=== PATIENT | male | born 1950 | race Caucasian/White ===

== ENCOUNTER → 2017-11-25 | Outpatient (CLI) | payer OTHER ==
[~2017-11-25] MED LIST: ASPI81CH; ATOR40TA; BENA20; FINA5; FURO40; LEVSOD150; METO50; POTA10T; SILD50TA; WARF5
[2017-11-25 12:03] LABS: BASOPHILS ABSOLUTE AUTO 0.04 K/mm3 (0.00-0.23); BASOPHILS PERCENT AUTO 0 % (0-2); EOSINOPHILS ABSOLUTE AUTO 0.07 K/mm3 (0.00-0.68); EOSINOPHILS PERCENT AUTO 1 % (0-6); Hematocrit 43.7 % (37.0-53.0); Hemoglobin 14.7 g/dL (13.5-17.5); IMMATURE GRAN ABSOLUTE AUTO 0.04 K/mm3 (0.00-0.10); IMMATURE GRAN PERCENT AUTO 0 % (0-1); LYMPHOCYTES ABSOLUTE AUTO 1.21 K/mm3 (0.84-5.20); LYMPHOCYTES PERCENT AUTO 13 % (21-46); MONOCYTES ABSOLUTE AUTO 0.97 K/mm3 (0.16-1.47); MONOCYTES PERCENT AUTO 10 % (4-13); Mean Corpuscular HGB 29.8 pg (26.0-34.0); Mean Corpuscular HGB Conc 33.6 g/dL (31.5-36.5); Mean Corpuscular Volume 89 fL (80-100); Mean Platelet Volume 9.6 fL (9.1-12.4); NEUTROPHILS ABSOLUTE AUTO 7.13 K/mm3 (1.96-9.15); NEUTROPHILS PERCENT AUTO 75 % (41-73); Platelet Count 210 K/mm3 (150-400); RDW Coefficient Variation 13.2 % (11.7-14.2); RDW Standard Deviation 42.9 fL (35.1-46.3); Red Blood Cell Count 4.93 M/mm3 (4.30-5.90); White Blood Cell Count 9.46 K/mm3 (4.00-11.30)
[2017-11-25 12:08] LABS: Anion Gap 9 mmol/L (6-16); Blood Urea Nitrogen 24 mg/dL (8-24); Bun/Creatinine Ratio 20.3 (12.0-20.0); CO2, Blood 28 mmol/L (21-32); Calcium, Blood 9.5 mg/dL (8.5-10.1); Chloride, Blood 99 mmol/L (98-108); Creatinine, Blood 1.18 mg/dL (0.60-1.20); Glomerular Filtration Rate >60 (60-); Glucose, Blood 102 mg/dL (70-99); Sodium, Blood 136 mmol/L (136-145); Uric Acid, Blood 11.5 mg/dL (3.5-7.2)
== END | disposition home or self-care (01) ==
LOC: LAB EV 11:55
PROVIDERS: Family Medicine
DX: M10.9 Gout, unspecified (principal); I48.91 Unspecified atrial fibrillation
CPT/HCPCS: 80048; 84550; 85025

== ENCOUNTER → 2018-12-30 | Outpatient (CLI) | payer OTHER | END | disposition home or self-care (01) | LOC: PLD 15:05 → LAB SHORT 15:05 | DX: D48.5 Neoplasm of uncertain behavior of skin (principal) | CPT/HCPCS: 88305 ==

== ENCOUNTER 2020-09-02 17:29 | Inpatient (IN) | payer OTHER ==
[~2020-09-02] VITALS: Ht 180.3 cm; Wt 133.1 kg
[~2020-09-02 17:29] MED LIST changes: -FINA5; +FINA5 PO; -POTA10T; +POTA10T PO
[2020-09-02 18:02] LABS: BASOPHILS ABSOLUTE AUTO 0.07 K/mm3 (0.00-0.23); BASOPHILS PERCENT AUTO 1 % (0-2); EOSINOPHILS ABSOLUTE AUTO 0.17 K/mm3 (0.00-0.68); EOSINOPHILS PERCENT AUTO 2 % (0-6); Hematocrit 53.1 % (37.0-53.0); IMMATURE GRAN ABSOLUTE AUTO 0.05 K/mm3 (0.00-0.10); IMMATURE GRAN PERCENT AUTO 1 % (0-1); LYMPHOCYTES ABSOLUTE AUTO 2.48 K/mm3 (0.84-5.20); LYMPHOCYTES PERCENT AUTO 25 % (21-46); MONOCYTES ABSOLUTE AUTO 0.89 K/mm3 (0.16-1.47); MONOCYTES PERCENT AUTO 9 % (4-13); Mean Corpuscular HGB 30.9 pg (26.0-34.0); Mean Corpuscular HGB Conc 35.8 g/dL (31.5-36.5); Mean Corpuscular Volume 87 fL (80-100); Mean Platelet Volume 10.1 fL (9.1-12.4); NEUTROPHILS ABSOLUTE AUTO 6.23 K/mm3 (1.96-9.15); NEUTROPHILS PERCENT AUTO 63 % (41-73); Platelet Count 242 K/mm3 (150-400); RDW Coefficient Variation 13.2 % (11.7-14.2); RDW Standard Deviation 41.4 fL (35.1-46.3); Red Blood Cell Count 6.14 M/mm3 (4.30-5.90); White Blood Cell Count 9.89 K/mm3 (4.00-11.30)
[2020-09-02 18:07] LABS: Base Excess Venous 13.5 mmol/L; Bicarbonate Venous 35.3 mmol/L (24.0-30.0); PCO2 Venous 45.1 mmHg (38-42); PO2 Venous 140 mmHg (38-42); pH Blood Venous 7.52 (7.34-7.37)
[2020-09-02 18:27] LABS: Troponin I <0.015 ng/mL (0.000-0.040)
[2020-09-02 18:31] LABS: Source, Urine Clean Catch
[2020-09-02 18:32] LABS: Thyroid Stimulating Hormone 9.52 uIU/mL (0.360-4.800)
[2020-09-02 18:35] LABS: Bilirubin, Urine Neg (Neg); Blood, Urine Neg (Neg); Glucose Qualitative, Urine 4+ (Neg); Ketones, Urine Neg (Neg); Leukocyte Esterase, Urine Neg (Neg); Nitrite, Urine Neg (Neg); Protein, Urine 1+ (Neg); Urobilinogen, Urine NORM (Normal)
[2020-09-02 18:40] LABS: Alanine Aminotransfer (ALT/SGP 64 U/L (12-78); Albumin, Blood 4.3 g/dL (3.4-5.0); Albumin/Globulin Ratio 1.1 (0.8-1.8); Alk Phos 149 U/L (50-136); Anion Gap 12 mmol/L (6-16); Aspartate Aminotrans (AST/SGOT 50 U/L (12-37); Bilirubin, Total 0.9 mg/dL (0.1-1.0); Blood Urea Nitrogen 65 mg/dL (8-24); Bun/Creatinine Ratio 45.5 (12.0-20.0); CO2, Blood 35 mmol/L (21-32); Calcium, Blood 10.6 mg/dL (8.5-10.1); Chloride, Blood 74 mmol/L (98-108); Creatinine, Blood 1.43 mg/dL (0.60-1.20); Glomerular Filtration Rate 52 (60-); Glucose, Blood 754 mg/dL (70-99); Potassium, Blood 3.1 mmol/L (3.5-5.5); Sodium, Blood 121 mmol/L (136-145); Total Protein, Blood 8.3 g/dL (6.4-8.2)
[2020-09-02 18:49] LABS: Appearance, Urine Clear (Clear); Color, Urine Yellow (P-Yellow)
[2020-09-02 19:35] LABS: Beta-hydroxybutyrate 2.2 mg/dL (0.2-2.8)
[2020-09-02] MEDS ORDERED: ALLO300 PO (20:54)
[2020-09-02] MEDS ORDERED: AMLO10 PO (20:54)
[2020-09-02] MEDS ORDERED: CHLO25B PO (20:55)
[2020-09-02] MEDS ORDERED: COLCRYS0.6 M1 PO (20:56)
[2020-09-02] MEDS ORDERED: Synthroid/Levo0.2 MG PO (20:59)
[2020-09-02] MEDS ORDERED: MAGNESIUM OXID500 MG (21:00)
[2020-09-02] MEDS ORDERED: ZEGERID 40 MG1 EAC1 PO (21:00)
[2020-09-02] MEDS ORDERED: Ropinirole HCl2 MG PO (21:01)
[2020-09-02] MEDS ORDERED: TORSE20 PO (21:01)
[2020-09-02] MEDS ORDERED: XARELTO20 MG PO (21:02)
[2020-09-02] MEDS ORDERED: TRAM50 PO (21:02)
[2020-09-02] MEDS ORDERED: OMEPRAZOLE20 MG PO (21:06)
[2020-09-02 21:14] LABS: International Normalized Ratio 1.24; Prothrombin Time Results 13.1 Sec (9.7-11.5)
[2020-09-02 22:25] LABS: Free Thyroxine 1.45 ng/dL (0.70-1.60)
[2020-09-02 23:29] LABS: Glucose, Blood 743 mg/dL (70-99)
[2020-09-02] MEDS ORDERED: METO100 PO (23:57)
[2020-09-02] MEDS ORDERED: FLONASE ALLERG9.9 ML (23:59)
[2020-09-02] MEDS ORDERED: Vitamin D2000 UNIT PO (23:59)
[2020-09-02] MEDS ORDERED: ALLEGRA ALLERG180 MG PO (23:59)
[2020-09-03 00:45] LABS: Glucose (ISTAT POC) >700 mg/dL (70-99)
--- NOTE | 2020-09-03 01:08 | NUR ---
PT SPO2 DECREASED TO 85% AT TIMES. ATTEMPTED TO PUT N/C ON PT AT 2 LPM, PT REFUSES TO WEAR O2. EDUCATED PT ON REASON FOR O2 N/C. PT CONTINUES TO REFUSE.
[2020-09-03 01:17] LABS: Bun/Creatinine Ratio 46.5 (12.0-20.0); Calcium, Blood 9.6 mg/dL (8.5-10.1); Creatinine, Blood 1.42 mg/dL (0.60-1.20)
[2020-09-03 02:00] LABS: Glucose (ISTAT POC) 632 mg/dL (70-99)
[2020-09-03 03:15] LABS: Glucose (ISTAT POC) 543 mg/dL (70-99)
[2020-09-03 03:28] LABS: BASOPHILS ABSOLUTE AUTO 0.09 K/mm3 (0.00-0.23); BASOPHILS PERCENT AUTO 1 % (0-2); EOSINOPHILS ABSOLUTE AUTO 0.16 K/mm3 (0.00-0.68); EOSINOPHILS PERCENT AUTO 2 % (0-6); Hematocrit 49.7 % (37.0-53.0); Hemoglobin 18.2 g/dL (13.5-17.5); IMMATURE GRAN ABSOLUTE AUTO 0.04 K/mm3 (0.00-0.10); IMMATURE GRAN PERCENT AUTO 0 % (0-1); LYMPHOCYTES ABSOLUTE AUTO 2.96 K/mm3 (0.84-5.20); LYMPHOCYTES PERCENT AUTO 27 % (21-46); MONOCYTES ABSOLUTE AUTO 1.06 K/mm3 (0.16-1.47); MONOCYTES PERCENT AUTO 10 % (4-13); Mean Corpuscular HGB 31.2 pg (26.0-34.0); Mean Corpuscular HGB Conc 36.6 g/dL (31.5-36.5); Mean Corpuscular Volume 85 fL (80-100); Mean Platelet Volume 10.2 fL (9.1-12.4); NEUTROPHILS ABSOLUTE AUTO 6.48 K/mm3 (1.96-9.15); NEUTROPHILS PERCENT AUTO 60 % (41-73); Platelet Count 225 K/mm3 (150-400); RDW Coefficient Variation 13.2 % (11.7-14.2); RDW Standard Deviation 40.9 fL (35.1-46.3); Red Blood Cell Count 5.83 M/mm3 (4.30-5.90); White Blood Cell Count 10.79 K/mm3 (4.00-11.30)
[2020-09-03 03:45] LABS: Albumin, Blood 4.1 g/dL (3.4-5.0); Albumin/Globulin Ratio 1.1 (0.8-1.8); Bilirubin, Total 0.8 mg/dL (0.1-1.0); Bun/Creatinine Ratio 43.8 (12.0-20.0); Calcium, Blood 9.9 mg/dL (8.5-10.1); Creatinine, Blood 1.46 mg/dL (0.60-1.20); Globulin, Blood 3.9 g/dL (2.2-4.0)
--- NOTE | 2020-09-03 06:21 | NUR ---
SHIFT SUMMARY PT REMAINED AWAKE THROUGH THE NIGHT. ALERT AND ORIENTED. ABLE TO MAKE NEEDS KNOWN AND INDEPENDENT WITH REPOSITIONING AND MINIMAL ASSIST WITH BR. INSULIN INFUSING AT 4 UNITS/HR. POTASSIUM REPLACEMENT IN PROGRESS. PT STATES SOME NAUSEA THROUGH AND WAS GIVEN ZOFRAN WITH GOOD EFFECT. PT EAGER FOR BREAKFAST TRAY. EDUCATED PT ON DIABETES DEISEASE PROCESS WELL MEDICATIONS. PT. STATED UNDERSTANDING AND HAD SOME QUESTIONS. PT. ABLE TO AMBULATE AND STEADY ON FEET.
--- NOTE | 2020-09-03 11:15 | NUR ---
Patient gave verbal permission to monique brijesh to [facility] to provide care during hours of 06:45 to 13:30 on 09/02/2020.
--- NOTE | 2020-09-03 11:42 | NUR ---
EARLY SHIFT ASSESS... PT IS C/O NAUSEA, AND SOME DRY HEEVES NOTED. PT IS SOMEWHAT POOR HX AND MINIMAL GRASP OF HIS HEALTH AND DISEASE PROCESSES. PT IS ON INSULIN GTT AND TITRATIONS NOTED TO CONT TO PROGRESS AND MANNAGE GLUCOSE.
--- NOTE | 2020-09-03 11:47 | NUR ---
DR CARTER IN TO SEE AND ASSESS PT. IVF TO STOP PER VO. PT WANTED BREAKFAST BUT HE TOOK MINIMAL AMOUNT OF B.FAST AND WILL FOLLOW.
--- NOTE | 2020-09-03 14:56 | NUR ---
1420 CBG IS JUST NOW BEGNING TO COME DOWN. LALNTUS WAS GIVEN AT 1300 AND WILL FOLLOW FOR D/C-ING OF INSULLIN. PT SABILLON IMPROVED.
--- NOTE | 2020-09-03 15:12 | NUR ---
GUIDEMAN IN TO EDUCATE PT RE DIET FOR F/U. AND REMAINS ON INUSLIN .
--- NOTE | 2020-09-03 15:36 | NUR ---
INSULIN GTT STOPPED AND IV SL. CBG 223. WILL FOLLOW WITH SQ INSULIN SLIDING SCALE PER DR DOS SANTOS.
--- NOTE | 2020-09-03 16:29 | NUR ---
PT A/O AND FEELING LIKE EATING. DENIES PAIN AND OFF INSULIN FOR 1 HOUR WITH CBG AT 243. CALLED DR CARTER FOR REQUEST FOR TRANSFER TO [place] TELE ORDERS.
--- NOTE | 2020-09-03 17:49 | NUR ---
PT DENIES PAIN OR DISTRESS CURRENTLY. SETTING UP IN CHAIR FEEDING SELF. PT NOT FULLY GRASPING ALL THAT THE UTILITY TRACTOR OPERATOR SPOKE ABOUT WITH HER VISIT. WILL REPORT AND FOLLOW. I/O NOTED . PT REMAINS IN AFIB.
--- NOTE | 2020-09-03 20:00 | NUR ---
ASSUMED CARE: PT A&O. IN CHRONIC AFIB. LUNG SOUNDS CLEAR. SPO2 >90% ON RA. ADA DIET. VOIDS ON OWN INTO URINAL. 2 PIV-LAC AND RFA. PATENT AND SL. WILL CONTINUE TO MONITOR
--- NOTE | 2020-09-04 03:02 | NUR ---
PT SLEEPING MAJORITY OF NIGHT. VSS
--- NOTE | 2020-09-04 06:04 | NUR ---
SHIFT SUMMARY: NO ACUTE CHANGES T/O SHIFT. VSS. PT SLEPT MAJORITY OF SHIFT. SEVERAL EPISODES OF DESATS THAT ONLY LASTED A COUPLE SECONDS BEFORE PT RECOVERED. A COUPLE L NC WAS PLACED ON PT. HE TOOK THE NC OFF THIS AM. SATS >90%. INDEPENDENT IN ROOM. CONTINENT. WILL PASS REPORT TO ONCOMING SHIFT
--- NOTE | 2020-09-04 07:36 | NUR ---
ASSUMED CARE: PT RESTING IN BED, ALERT, ORIENTED, TALKING TO STAFF. SL. AFIB ON TELE WITH HR IN 90S. AMBULATORY AND ASKED FOR ASSISTANCE TO BSC. DENIES FURTHER NEEDS AT THIS TIME.
[2020-09-04 08:23] LABS: Anion Gap 8 mmol/L (6-16); Blood Urea Nitrogen 45 mg/dL (8-24); Bun/Creatinine Ratio 40.2 (12.0-20.0); CO2, Blood 34 mmol/L (21-32); Calcium, Blood 10.1 mg/dL (8.5-10.1); Chloride, Blood 91 mmol/L (98-108); Creatinine, Blood 1.12 mg/dL (0.60-1.20); Glomerular Filtration Rate >60 (60-); Glucose, Blood 324 mg/dL (70-99); Potassium, Blood 3.7 mmol/L (3.5-5.5); Sodium, Blood 133 mmol/L (136-145)
[2020-09-04] MEDS ORDERED: BASAGLAR K100 UNIT/1 SC (11:24)
[2020-09-04] MEDS ORDERED: ACET325 PO (11:24)
[2020-09-04] MEDS ORDERED: AMLO5 PO (11:25)
[2020-09-04] MEDS ORDERED: METF500 PO (11:25)
[2020-09-04] MEDS ORDERED: Prinivil10 MG PO (11:25)
--- NOTE | 2020-09-04 11:30 | NUR ---
PT'S STEPPED OUT OF ROOM AND STATED THAT SHE PICKED UP PT'S GLUCOMETER BUT WAS TOLD THAT DR WANTED BLOOD SUGARS CHECKED 4 TIMES A DAY BUT INSURANCE WOULD ONLY APPROVE 3 TIMES A DAY. CALL TO DR CARTER WHO STATED HE WANTED PT TO CHECK SUGAR 4 TIMES A DAY UNTIL FOLLOW UP WITH [facility] OFFICE, WHICH SHOULD BE IN 3 DAYS. STRIPS DID NOT COME WITH NEW GLUCOMETER SO REVIEWED USE OF GLUCOMETER WITH PT AND USING OUR GLUCOMETER. WENT OVER INSTRUCTIONS OF NEW GLUCOMETER WELL. EXPLAINED TO PT THAT IF HE HAS ANY CONFUSION ON USING MACHINE OR GETS ANY ERROR MESSAGES THAT HE NEEDS TO CALL DR'S OFFICE OR HOSPITAL FOR HELP AND TO NOT IGNORE THE MESSAGE BECAUSE BLOOD SUGARS CAN EASILY GET OUT OF CONTROL THAT WAY. EXPLAINED TO PT BASICS OF DIABETES AND HOW INSULIN WORKS. DIETITIAN HAD ALREADY DISCUSSED DIET WITH PT AND THIS NURSE REITERATED ON IT. PT TAUGHT BACK SOME OF WHAT HE LEARED ABOUT DIETARY CHOICES. PACKETS ON THIS ALSO PROVIDED IN DC TEACHING. PT SEEMED CONFUSED ABOUT MEDICATIONS AND NURSE HAD TO KEEP RE-INSTRUCTING ABOUT METFORMIN TO BE GIVEN TWICE A DAY WITH BREAKFAST AND DINNER AND LONG ACTING INSULIN TO BE GIVEN AT BEDTIME WITH A SNACK. INSTRUCTED PT TO NEVER MEDICATE BASED ON HOW HE FEELS AND TO ALWAYS CHECK SUGAR FIRST BEFORE TREATMENT WHEN HAVING SYMPTOMS. PT AND WERE THEN GIVEN A BREAK FROM TEACHING AND WERE TOLD THAT RN WOULD BE BACK AT A LATER TIME TO RECHECK BLOOD SUGAR. CBG WAS 413 AND WAS TREATED BUT LUNCH WAS WITHELD. DR CARTER STOPPED BACK BY TO SEE PT AGAIN AND WAS MADE AWARE OF 413 BLOOD SUGAR AND AGREED TO PLAN OF RECHECKING AFTER AN HOUR AND CAN LET HIM GO HOME IF LESS THAN 400.
--- NOTE | 2020-09-04 13:10 | NUR ---
ENTERED ROOM TO RECHECK BLOOD SUGAR WITH IMPROVED RESULT. LUNCH TRAY PROVIDED. PT MADE COMMENT TO IMPLY THAT HE DID NOT UNDERSTAND METFORMIN WAS TWICE A DAY AND LANTUS WAS TO BE GIVEN IN EVENING. RE-EXPLAINED THIS. PT EATING LUNCH AT THIS TIME.
--- NOTE | 2020-09-04 14:45 | NUR ---
PT AGAIN MADE AN INCORRECT COMMENT ABOUT MEDICATIONS AND WHEN THEY SHOULD BE ADMINISTERED. DISCUSSED THIS WITH PT AND AGAIN. DISCUSSED CONCERN WITH RESEARCH PHYSICIAN DUE TO PT NOT UNDERSTANDING DISCHARGE INSTRUCTIONS. RESEARCH PHYSICIAN RELAYED THAT SHE HEARD THAT PT HAD A DAUGHTER THAT OFFERED TO HELP EXPLAIN INSTRUCTIONS WITH PT AND HELP MANAGE PT AT HOME. CALL TO PT'S DAUGHTER AND EXPLAINED RN'S CONCERNS. PT AGREED THAT PT AND ARE PROBABLY NOT UNDERSTANDING INSTRUCTIONS WELL. GAVE DAUGHTER INFORMATION ABOUT DIABETES AND EXPLAINED HOW MEDICATIONS WORK AND WHEN PT SHOULD TAKE THEM WELL HOW OFTEN PT SHOULD CHECK CBGS AND RECORD THEM. DAUGHTER SAID SHE LIVES 5 HOURS AWAY AND WAS HOPING TO COME CHECK ON THEM IN A FEW DAYS. ASKED DAUGHTER IF IN THE MEANTIME SHE CALL AND CHECK ON HOW HE'S DOING ADMINISTERING MEDICATIONS AND HOW HIS CBGS ARE LOOKING. EXPLAINED TO DAUGHTER THAT IF SHE HEARS THEM DISCUSS ANY CONFUSION OR CONCERNS ABOUT MEDICATIONS OR EQUIPMENT THAT THEY HAVE BEEN TOLD TO CALL HOSPITAL OR DOCTOR'S OFFICE AND TO NOT IGNORE THAT. DAUGHTER SAID SHE WILL BE ABLE TO CALL AND CHECK AND HOPEFULLY COME VISIT THEM IN THE NEXT FEW DAYS. TOLD HER THAT OFFICE SHOULD BE CALLING TO SCHEDULE APPOINTMENT AND THAT SHE SHOULD TRY TO GO WITH HIM TO APPOINTMENT.
--- NOTE | 2020-09-04 15:17 | NUR ---
PT WAS DISCHARGED HOME AFTER GETTING DRESSED AND IV'S DC'D WNL. PT SHOWED RN THAT HE HAD WRITTEN SCHEDULE FOR MEDS AND DC INSTRUCTIONS. REITERATED THAT HE NEEDED TO CALL HOSPITAL OR [facility] WITH ANY QUESTIONS AND TO MAKE NO ASSUMPTIONS. CALLED SIMA WITH [facility] AND ASKED IF SHE COULD MAKE A NOTE IN CHART SO THAT OFFICE WOULD ALLOW DAUGHTER TO COME IN WITH PT FOR APPOINTMENT DUE TO PT NOT RETAINING INFORMATION WELL. SIMA MADE A NOTE OF THIS AND STATED SHE WOULD CALL DINKEY LOCOMOTIVE OPERATOR AT [facility] TO FOLLOW UP WITH PT SOONER RATHER THAN LATER DUE TO POOR INFORMATION RETENTION. PT AMBULATORY UPON DISCHARGE.
== END 2020-09-04 14:40 | disposition home or self-care (01) | DRG 638 ==
LOC: ER 17:29 → ICUW 17:30
PROVIDERS: Emergency Medicine; Family Medicine; Physician Assistant; ADMIT Internal Medicine
DX: E11.00 Type 2 diabetes mellitus with hyperosmolarity without nonketotic hyperglycemic-hyperosmolar coma (NKHHC) (principal); E87.1 Hypo-osmolality and hyponatremia; Z68.41 Body mass index [BMI] 40.0-44.9, adult; I48.92 Unspecified atrial flutter; E86.0 Dehydration; E87.6 Hypokalemia; I48.91 Unspecified atrial fibrillation; E66.01 Morbid (severe) obesity due to excess calories; G47.33 Obstructive sleep apnea (adult) (pediatric); G25.81 Restless legs syndrome; I10 Essential (primary) hypertension; E89.0 Postprocedural hypothyroidism; K21.9 Gastro-esophageal reflux disease without esophagitis; N40.0 Benign prostatic hyperplasia without lower urinary tract symptoms; E83.52 Hypercalcemia; M10.9 Gout, unspecified; J44.9 Chronic obstructive pulmonary disease, unspecified; K42.9 Umbilical hernia without obstruction or gangrene; Z79.01 Long term (current) use of anticoagulants; Z87.891 Personal history of nicotine dependence
CPT/HCPCS: 36415; 71046; 80048; 80053; 82010; 82803; 82947; 83036; 83930; 84439; 84443; 84484; 85025; 85610; 93005; 93010; 96374; 96375; 96376; 99285-25; A9270; A9270-GY; G0378; J1815; J2405; J3010; J3480; J7030; J7050

== ENCOUNTER → 2020-12-31 | Outpatient (CLI) | payer OTHER ==
[~2020-12-31] MED LIST changes: +ACET325 PO; +ALBU2.5V5 INH; +ALBU90OI INH; +ALLEGRA ALLERG180 MG PO; +ALLO300 PO; +AMLO10 PO; +AMLO5 PO; +AMLODIPINE BESYL5 MG PO; +BASAGLAR K100 UNIT/1 SC; +CHLO25B PO; +COLCHICINE0.6 MG PO; +COLCRYS0.6 M1 PO; +FARXIGA10 MG PO; +FLONASE ALLERG9.9 ML; +FLUT1DIS5 INH; +FLUTICASONE-SA1 EAC9 INH; +INSULIN LI100 UNIT/8 SC; +LOSARTAN POTASS25 M2 PO; +MAGNESIUM OXID400 M1 PO; +MAGNESIUM OXID500 MG; +METF500 PO; +METO100 PO; +METOPROLOL TAR PO; +OMEP20ER PO; +OMEPRAZOLE20 MG PO; +ONDA4 PO; +Potassium Chlo20 ME1 PO; +Prinivil10 MG PO; +ROPINIROLE HCL3 M3 PO; +Ropinirole HCl2 MG PO; +SILD50TA PO; +SPIRONOLACTONE25 MG PO; +Synthroid/Levo0.2 MG PO; +TAMSULOSIN HCL0.4 M1 PO; +TORSE20 PO; +TRAM50 PO; +Vitamin D2000 UNIT PO; +XARELTO20 M1 PO; +XARELTO20 MG PO; +ZEGERID 40 MG1 EAC1 PO
== END | disposition home or self-care (01) ==
LOC: LAB SHORT 07:43 → PLD 07:43
DX: D18.01 Hemangioma of skin and subcutaneous tissue (principal)
CPT/HCPCS: 88305

== ENCOUNTER → 2021-03-26 | Outpatient (CLI) | payer OTHER ==
[2021-03-26 14:07] LABS: BASOPHILS ABSOLUTE AUTO 0.08 K/mm3 (0.00-0.23); BASOPHILS PERCENT AUTO 1 % (0-2); EOSINOPHILS ABSOLUTE AUTO 0.18 K/mm3 (0.00-0.68); EOSINOPHILS PERCENT AUTO 2 % (0-6); Hematocrit 52.6 % (37.0-53.0); Hemoglobin 18.3 g/dL (13.5-17.5); IMMATURE GRAN ABSOLUTE AUTO 0.08 K/mm3 (0.00-0.10); IMMATURE GRAN PERCENT AUTO 1 % (0-1); LYMPHOCYTES ABSOLUTE AUTO 1.95 K/mm3 (0.84-5.20); LYMPHOCYTES PERCENT AUTO 17 % (21-46); MONOCYTES ABSOLUTE AUTO 0.89 K/mm3 (0.16-1.47); MONOCYTES PERCENT AUTO 8 % (4-13); Mean Corpuscular HGB 31.1 pg (26.0-34.0); Mean Corpuscular HGB Conc 34.8 g/dL (31.5-36.5); Mean Corpuscular Volume 89 fL (80-100); NEUTROPHILS ABSOLUTE AUTO 8.66 K/mm3 (1.96-9.15); NEUTROPHILS PERCENT AUTO 73 % (41-73); Platelet Count 271 K/mm3 (150-400); RDW Coefficient Variation 13.6 % (11.7-14.2); RDW Standard Deviation 44.9 fL (35.1-46.3); Red Blood Cell Count 5.89 M/mm3 (4.30-5.90); White Blood Cell Count 11.84 K/mm3 (4.00-11.30)
[2021-03-26 14:22] LABS: Albumin, Blood 4.6 g/dL (3.4-5.0); Albumin/Globulin Ratio 1.3 (0.8-1.8); Calcium, Blood 10.3 mg/dL (8.5-10.1); Creatinine, Blood 1.93 mg/dL (0.60-1.20); Globulin, Blood 3.5 g/dL (2.2-4.0); Potassium, Blood 5.6 mmol/L (3.5-5.5); Total Protein, Blood 8.1 g/dL (6.4-8.2)
== END | disposition home or self-care (01) ==
LOC: LAB SHORT 13:55 → LAB EV 13:55
PROVIDERS: Physician Assistant
DX: E86.0 Dehydration (principal)
CPT/HCPCS: 80053; 83690; 85025

== ENCOUNTER 2021-03-28 17:43 | Inpatient (IN) | payer OTHER, MEDICARE ==
[~2021-03-28] VITALS: Ht 180.3 cm; Wt 131.7 kg
[~2021-03-28 17:43] MED LIST changes: -ALBU2.5V5 INH; -ALBU90OI INH; -AMLODIPINE BESYL5 MG PO; -COLCHICINE0.6 MG PO; -FARXIGA10 MG PO; -FLUT1DIS5 INH; -FLUTICASONE-SA1 EAC9 INH; -INSULIN LI100 UNIT/8 SC; -LOSARTAN POTASS25 M2 PO; -MAGNESIUM OXID400 M1 PO; -METOPROLOL TAR PO; -OMEP20ER PO; -ONDA4 PO; -Potassium Chlo20 ME1 PO; -ROPINIROLE HCL3 M3 PO; -SILD50TA PO; -SPIRONOLACTONE25 MG PO; -TAMSULOSIN HCL0.4 M1 PO; -XARELTO20 M1 PO
[2021-03-28 18:15] LABS: Calcium, Ionized (POC) 1.13 mmol/L (1.10-1.46); Chloride (POC) 93 mmol/L (98-108); Glucose (ISTAT POC) >700 mg/dL (70-99); Hemoglobin (POC) 18.7 g/dL (13.5-17.5); Potassium (POC) 6.8 mmol/L (3.5-5.5); Sodium (POC) 124 mmol/L (135-148); Total CO2 (POC) 27 mmol/L (21-32)
[2021-03-28 18:16] LABS: BASOPHILS ABSOLUTE AUTO 0.05 K/mm3 (0.00-0.23); BASOPHILS PERCENT AUTO 0 % (0-2); EOSINOPHILS ABSOLUTE AUTO 0.02 K/mm3 (0.00-0.68); EOSINOPHILS PERCENT AUTO 0 % (0-6); Hemoglobin 17.2 g/dL (13.5-17.5); IMMATURE GRAN PERCENT AUTO 1 % (0-1); LYMPHOCYTES ABSOLUTE AUTO 0.99 K/mm3 (0.84-5.20); LYMPHOCYTES PERCENT AUTO 7 % (21-46); MONOCYTES ABSOLUTE AUTO 1.03 K/mm3 (0.16-1.47); MONOCYTES PERCENT AUTO 7 % (4-13); Mean Corpuscular HGB 31.3 pg (26.0-34.0); Mean Corpuscular HGB Conc 31.1 g/dL (31.5-36.5); Mean Corpuscular Volume 101 fL (80-100); Mean Platelet Volume 11.4 fL (9.1-12.4); NEUTROPHILS ABSOLUTE AUTO 11.69 K/mm3 (1.96-9.15); NEUTROPHILS PERCENT AUTO 84 % (41-73); Platelet Count 278 K/mm3 (150-400); RDW Coefficient Variation 13.6 % (11.7-14.2); RDW Standard Deviation 51.5 fL (35.1-46.3); White Blood Cell Count 13.88 K/mm3 (4.00-11.30)
[2021-03-28 18:21] LABS: Hematocrit 55.3 % (37.0-53.0)
[2021-03-28 18:27] LABS: Base Excess Venous -3.4 mmol/L; Bicarbonate Venous 21.5 mmol/L (24.0-30.0); PCO2 Venous 44.4 mmHg (38-42); PO2 Venous 114 mmHg (38-42); pH Blood Venous 7.32 (7.34-7.37)
[2021-03-28 18:34] LABS: Magnesium, Blood 3.2 mg/dL (1.6-2.4)
[2021-03-28 18:39] LABS: Albumin, Blood 4.1 g/dL (3.4-5.0); Albumin/Globulin Ratio 1.1 (0.8-1.8); Bilirubin, Total 0.9 mg/dL (0.1-1.0); Bun/Creatinine Ratio 39.5 (12.0-20.0); Calcium, Blood 9.4 mg/dL (8.5-10.1); Creatinine, Blood 2.63 mg/dL (0.60-1.20); Globulin, Blood 3.7 g/dL (2.2-4.0); Phosphorus, Blood 6.5 mg/dL (2.5-4.9); Potassium, Blood 6.6 mmol/L (3.5-5.5); Total Protein, Blood 7.8 g/dL (6.4-8.2)
[2021-03-28] MEDS ORDERED: TAMSULOSIN HCL0.4 M1 PO (19:00)
[2021-03-28] MEDS ORDERED: FLUTICASONE-SA1 EAC9 INH (19:01)
[2021-03-28] MEDS ORDERED: Potassium Chlo20 ME1 PO (19:02)
[2021-03-28] MEDS ORDERED: SPIRONOLACTONE25 MG PO (19:02)
[2021-03-28] MEDS ORDERED: LOSARTAN POTASS25 M2 PO (19:03)
[2021-03-28] MEDS ORDERED: FINA5 PO (19:03)
[2021-03-28] MEDS ORDERED: AMLODIPINE BESYL5 MG PO (19:03)
[2021-03-28] MEDS ORDERED: OMEP20ER PO (19:03)
[2021-03-28] MEDS ORDERED: ALLO300 PO (19:03)
[2021-03-28] MEDS ORDERED: XARELTO20 M1 PO (19:04)
[2021-03-28] MEDS ORDERED: ROPINIROLE HCL3 M3 PO (19:04)
[2021-03-28] MEDS ORDERED: METOPROLOL TAR PO (19:04)
[2021-03-28 19:39] LABS: Source, Urine Clean Catch
[2021-03-28 19:57] LABS: Bilirubin, Urine Neg (Neg); Blood, Urine Neg (Neg); Glucose Qualitative, Urine 4+ (Neg); Ketones, Urine Neg (Neg); Leukocyte Esterase, Urine Neg (Neg); Nitrite, Urine Neg (Neg); Protein, Urine Neg (Neg); Urobilinogen, Urine NORM (Normal)
[2021-03-28 20:07] LABS: Appearance, Urine Clear (Clear); Color, Urine Pale Yellow (P-Yellow)
[2021-03-28 20:51] LABS: Bun/Creatinine Ratio 39.1 (12.0-20.0); Calcium, Blood 9.2 mg/dL (8.5-10.1); Creatinine, Blood 2.61 mg/dL (0.60-1.20); Potassium, Blood 5.2 mmol/L (3.5-5.5)
[2021-03-28 22:38] LABS: Glucose, Blood 1095 mg/dL (70-99)
--- NOTE | 2021-03-28 23:12 | NUR ---
ASSUMED PT CARE AT 2104 PT ARRIVED FROM ED ALERT AND ORIENTED AND ABLE TO COMMUNICATE NEEDS. PT HAS A "3RD GRADE READING LEVEL"; HOWEVER, DOES NOT READ OR WRITE. STATES HE HAS HIS "DO ALL THAT". PT ARRIVED WITH NS INFUSING WO. INSULIN GTT YET TO BE STARTED, WHICH WAS INITIATED AT A RATE OF 3 UNITS/HR D/T BS 1158. TRENDING IN THE RIGHT DIRECTION WITH MOST RECENT BS 1095. PT APPEARS VERY FORGETFUL AND REQUIRES EXTENSIVE EDUCATION REGARDING HIS DISEASE PROCESS. PT REQUESTING MILK SHAKES AND CHIPS. EDUCATION GIVEN REGARDING REASON FOR HOSPITAL STAY IN REGARDS TO ELEVATED BLOOD SUGAR AND REQUIRING MEDICATIONS TO LOWER BLOOD SUGAR LEVEL. PT STATES HE TAKES METFORMIN; THEREFORE, NEEDS CARBS. REITERATED TO PT THAT HE NEEDS METFORMIN BECAUSE HE EATS TOO MANY CARBS/SUGARS IN HIS DIET. PT DOES NOT APPEAR TO COMPREHEND, NOR IS RECEPTIVE TO ANY EDUCATION. PT STATES HIS HELPS TAKE CARE OF HIM; THEREFORE, EDUCATION MAY BE MORE BENEFICIAL TO BE HAD WITH . PT NOTED TO BE IN AFIB WITH A RATE OF 90-110'S; BP'S STABLE; HOWEVER, SBP LOW 100'S. NS INFUSING AT A RATE OF 100MLS/HR X1.[address] GOODWIN. CALL LIGHT WITHIN REACH; HOWEVER, BED ALARM SET D/T PT FORGETFUL AND IMPULSIVE. UTILIZES URINAL, BUT HAS TO STAND AT BEDSIDE FOR USE. WILL CONTINUE TO MONITOR.
[2021-03-28 23:43] LABS: Glucose, Blood 904 mg/dL (70-99)
[2021-03-29 01:09] LABS: Glucose, Blood 870 mg/dL (70-99)
[2021-03-29] MEDS ORDERED: FLUT1DIS5 INH (01:39)
[2021-03-29] MEDS ORDERED: ALBU2.5V5 INH (01:39)
[2021-03-29] MEDS ORDERED: CHLO25B PO (01:40)
[2021-03-29] MEDS ORDERED: ALBU90OI INH (01:40)
[2021-03-29] MEDS ORDERED: COLCHICINE0.6 MG PO (01:41)
[2021-03-29] MEDS ORDERED: FARXIGA10 MG PO (01:43)
[2021-03-29] MEDS ORDERED: MAGNESIUM OXID400 M1 PO (01:44)
[2021-03-29] MEDS ORDERED: SILD50TA PO (01:45)
[2021-03-29] MEDS ORDERED: ONDA4 PO (01:45)
[2021-03-29] MEDS ORDERED: ACET325 PO (01:48)
[2021-03-29] MEDS ORDERED: TRAM50 PO (01:48)
[2021-03-29 02:18] LABS: Anion Gap 7 mmol/L (6-16); Blood Urea Nitrogen 94 mg/dL (8-24); Bun/Creatinine Ratio 41.8 (12.0-20.0); CO2, Blood 30 mmol/L (21-32); Calcium, Blood 9.4 mg/dL (8.5-10.1); Chloride, Blood 101 mmol/L (98-108); Creatinine, Blood 2.25 mg/dL (0.60-1.20); Glomerular Filtration Rate 31 (60-); Glucose, Blood 737 mg/dL (70-99); Potassium, Blood 4.7 mmol/L (3.5-5.5); Sodium, Blood 138 mmol/L (136-145)
[2021-03-29 03:14] LABS: BASOPHILS ABSOLUTE AUTO 0.07 K/mm3 (0.00-0.23); BASOPHILS PERCENT AUTO 1 % (0-2); EOSINOPHILS ABSOLUTE AUTO 0.12 K/mm3 (0.00-0.68); EOSINOPHILS PERCENT AUTO 1 % (0-6); Hematocrit 53.8 % (37.0-53.0); Hemoglobin 18.2 g/dL (13.5-17.5); IMMATURE GRAN ABSOLUTE AUTO 0.05 K/mm3 (0.00-0.10); IMMATURE GRAN PERCENT AUTO 0 % (0-1); LYMPHOCYTES ABSOLUTE AUTO 1.72 K/mm3 (0.84-5.20); LYMPHOCYTES PERCENT AUTO 13 % (21-46); MONOCYTES ABSOLUTE AUTO 1.12 K/mm3 (0.16-1.47); MONOCYTES PERCENT AUTO 8 % (4-13); Mean Corpuscular HGB 30.8 pg (26.0-34.0); Mean Corpuscular HGB Conc 33.8 g/dL (31.5-36.5); Mean Platelet Volume 10.5 fL (9.1-12.4); NEUTROPHILS ABSOLUTE AUTO 10.41 K/mm3 (1.96-9.15); NEUTROPHILS PERCENT AUTO 77 % (41-73); Platelet Count 233 K/mm3 (150-400); RDW Coefficient Variation 13.5 % (11.7-14.2); RDW Standard Deviation 45.8 fL (35.1-46.3); White Blood Cell Count 13.49 K/mm3 (4.00-11.30)
[2021-03-29 03:17] LABS: Mean Corpuscular Volume 91 fL (80-100)
[2021-03-29 03:36] LABS: Albumin, Blood 4.2 g/dL (3.4-5.0); Albumin/Globulin Ratio 1.1 (0.8-1.8); Bilirubin, Total 0.8 mg/dL (0.1-1.0); Bun/Creatinine Ratio 40.4 (12.0-20.0); Calcium, Blood 9.4 mg/dL (8.5-10.1); Creatinine, Blood 2.23 mg/dL (0.60-1.20); Globulin, Blood 3.7 g/dL (2.2-4.0); Total Protein, Blood 7.9 g/dL (6.4-8.2)
[2021-03-29 04:26] LABS: Glucose, Blood 570 mg/dL (70-99)
--- NOTE | 2021-03-29 06:11 | NUR ---
END OF SHIFT SUMMARY NO SIGNIFICANT CHANGES SINCE LAST ENTRY. INSULIN GTT IS AT 3 UNIT/HR. PT HAS NS INFUSING AT 100MLS/HR VIA POWERGLIDE TO LEFT UPPER ARM. HE IS ALERT AND ORIENTED; HOWEVER, NOTED TO BE FORGETFUL AT TIMES. BED ALARM SET D/T PT ATTEMPTING TO GET OUT OF BED TO USE THE RESTROOM BY SELF. HE HAS BEEN BETTER WITH CALLING STAFF FOR ASSIST. STILL NEEDS REINFORCEMENT WITH EDUCATION D/T NOT COMPREHENDING DISEASE PROCESS. CONTINUES TO ASK ABOUT GOING HOME AND THAT HE COULD BE DOING THIS HIMSELF. APPEARS MEDS HE IS TELLING ME THAT HE TAKES DOES NOT MATCH WHAT [facility] SENT OVER WITH HIM. THEREFORE, MED REC UPON DISCHARGE NEEDS GONE OVER WITH FOR BETTER MEDICATION COMPLIANCE. WILL CONTINUE TO MONITOR UNTIL REPORT IS HANDED OFF TO ONCOMING RN.
--- NOTE | 2021-03-29 08:00 | NUR ---
PT CONTINUES ON INSULIN GTT AT 3U/HR. FLUIDS INFUSING @100ML/HR. PT DOESN'T UNDERSTAND WHY HIS CAN'T VISIT UNTIL LATER, THEY HAVE BEEN VACCINATED. HE IS FRUSTRATED. EXPLAINED AND REINTERATED REASONS AND WHY THINGS ARE THE WAY THEY ARE. ASKED ABOUT A SHOWER/BATH, ASKED FOR ASSISTANCE WITH THE URINAL, ALSO ASKED THAT HIS "TESTICLES" BE CLEANED. TRYING TO ENCOURAGE HIM AND EDUCATE MUCH POSSIBLE.
[2021-03-29 08:28] LABS: Bun/Creatinine Ratio 40.7 (12.0-20.0); Calcium, Blood 9.5 mg/dL (8.5-10.1); Creatinine, Blood 1.89 mg/dL (0.60-1.20); Potassium, Blood 4.5 mmol/L (3.5-5.5)
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
--- NOTE | 2021-03-29 12:52 | NUR ---
CARA AND I HAVE BEEN ACTIVELY TRYING TO FIGURE OUT WHAT HE CAN EAT THAT HE WILL LIKE AND NOT THROW UP. CARA SAYS HE DOESN'T HAVE TEETH, HE DRINKS MILK, ICE COLD AND ICE CREAM AT HOME. THAT IS HIS DINNER. WE HAVE TRIED FRUIT CUPS, GELATIN CUPS, CUSTARD/PUDDING CUPS, STRAWBERRY ENSURE, NONE WERE TOLERABLE TO HIM. HE DIDN'T FEEL THAT ANYTHING WAS COLD ENOUGH. WE TRIED A COLD SANDWICH WITH MEAT AND CHEESE ON WHEAT BREAD, HE DIDN'T LIKE THE BREAD AND SPIT BACK OUT MOST OF THE SANDWICH. I HAVE BEEN ABLE TO GIVE HIM 2 CARTONS OF COLD MILK (1%) POURED OVER ICE. I HAVE SPOKEN WITH GET TO TRY TO COME UP WITH OPTIONS. IT HAS BEEN OVERWHELMING FOR HIM. HE IS TEARFUL AND UPSET, SAYS THAT WHAT HE WAS DOING AT HOME WAS WORKING, BUT THEN I REMINDED HIM THAT HIS SUGARS WERE OVER 1300, SO IT WASN'T WORKING. PT REMAINS TEARFUL, "I JUST WANT TO GO HOME"
--- NOTE | 2021-03-29 13:45 | NUR ---
HERE TO SEE PATIENT, PT DOESN'T LET EXPLAIN WHAT NEEDS TO HAPPEN WITH HIS CARE. HE IS FRUSTRATED AND UPSET AND TALKATIVE. HE DOESN'T LET RESPOND TO HIS DIFFERENT CONCERNS. ORDERS RECEIVED FOR NOW INSULIN AND WOUND CARE COORDINATOR CONSULT WITH PT AND . WILL BE BACK LATER TO DISCUSS FURTHER CARE OPTIONS. PT DISAPPOINTED. THIS NURSE SAID TO PATIENT, YOU NEED TO LET THE DOCTOR TELL YOU WHAT TO DO. PT SAYS THAT HE DOESN'T LIKE TO HEAR IT.
--- NOTE | 2021-03-29 16:42 | NUR ---
TEMPLATE CUTTER, ROBI VASQUEZ JUST MET WITH PATIENT AND . SPENT A GOOD DEAL OF TIME WITH HIM. THE IV INSULIN HAS BEEN TURNED OFF PER ORDERS AND PT MEDICATED WITH THE COVERAGE PEN ORDERED. IV FLUIDS AT 75ML CONTINUE. HAS RETURNED TO DISCUSS CARE WITH PT AND .
--- NOTE | 2021-03-29 18:11 | NUR ---
I HAVE SPENT A GREAT AMOUNT OF TIME TRYING TO FIND FOODS THAT CARA WILL EAT, HE DOESN'T LIKE ANYTHING. WE HAVE TRIED THE MAGIC CUP, THE SANDWICH UNDONE (MEAT SWABBED IN CREAM CHEESE AND ROLLED UP), HE RETURNED CHEW UP PIECES TO THE TRAY, I'VE TRIED FREEZING THE FRUIT CUPS, I'VE TRIED THE PUDDINGS, GLUCERNA, HE JUST TELLS ME HE DOESN'T LIKE IT. JUST HE HAS EXPLAINED ABOUT HIS CPAP AT HOME, HE WAKES UP STARTLED SO HE THINKS HE NEEDS OXYGEN SO HE SAYS IT ISN'T WORKING. I HAVE TRIED TO ENCOURAGE HIM. HIS INSULIN GTT IS OFF PER 'S ORDERS, IV NS @ 75ML/HR INFUSING, USING THE URINAL APPROPRIATELY. CBG REMAINS IN THE 300S.
--- NOTE | 2021-03-29 18:30 | NUR ---
CARA JUST CALLED ME IN THE ROOM TO TRY TO CONVINCE ME AND HIMSELF THAT HE NEEDED TO GO HOME WITH HIS . AFTER A LENGTHY DISCUSSION, MOSTLY BY CARA TALKING IT OUT HIMSELF, HE HAS DECIDED IT WOULD BE BEST TO STAY. HIS AGREES THAT HE NEEDS TO BE HERE FOR HIS BEST. HE SAYS, I MAY BE GRUMPY BUT I DO APPRECIATE YOU. PT BACK IN BED, TRYING TO REST.
--- NOTE | 2021-03-30 02:08 | NUR ---
UPDATE TO DR. RIVERS PT ADAMENT ABOUT WANTING MILK AND JUICE. NONCOMPLIANT WITH ADA DIET. BLOOD SUGAR CHECKED, WHICH RESULTED AT 360. PT STATES HE WANTS US TO CHECK HIS SUGARS AND THEN COVER HIM WITH INSULIN SO HE CAN EAT AND DRINK WHATEVER HE WANTS. NEW ORDERS TO CHANGE TO HIGH SS. KEEP AC AND HS BLOOD SUGAR CHECKS AND LET PT EAT WHAT HE WANTS SINCE HE WILL BE DISCHARGING HOME AND EATING WHATEVER HE WANTS THERE.
--- NOTE | 2021-03-30 03:48 | NUR ---
ATTEMPTED SLEEP OX STUDY, PT WAS AWAKE FOR ENTIRE ATTEMPT, AGGITATED AND REQUESTING MANY THINGS FROM NURSING THAT GO AGAINST HIS CARE PLAN LEADING TO INSUFFICIENT DATA FOR THE STUDY. STUDY TERMINATED AND PULLED.
[2021-03-30 04:15] LABS: BASOPHILS ABSOLUTE AUTO 0.06 K/mm3 (0.00-0.23); BASOPHILS PERCENT AUTO 1 % (0-2); EOSINOPHILS ABSOLUTE AUTO 0.28 K/mm3 (0.00-0.68); EOSINOPHILS PERCENT AUTO 3 % (0-6); Hematocrit 48.1 % (37.0-53.0); IMMATURE GRAN ABSOLUTE AUTO 0.05 K/mm3 (0.00-0.10); IMMATURE GRAN PERCENT AUTO 1 % (0-1); LYMPHOCYTES ABSOLUTE AUTO 1.92 K/mm3 (0.84-5.20); LYMPHOCYTES PERCENT AUTO 22 % (21-46); MONOCYTES ABSOLUTE AUTO 0.79 K/mm3 (0.16-1.47); MONOCYTES PERCENT AUTO 9 % (4-13); Mean Corpuscular HGB 31.3 pg (26.0-34.0); Mean Corpuscular HGB Conc 33.3 g/dL (31.5-36.5); Mean Corpuscular Volume 94 fL (80-100); Mean Platelet Volume 10.6 fL (9.1-12.4); NEUTROPHILS ABSOLUTE AUTO 5.78 K/mm3 (1.96-9.15); NEUTROPHILS PERCENT AUTO 65 % (41-73); Platelet Count 143 K/mm3 (150-400); RDW Coefficient Variation 13.9 % (11.7-14.2); RDW Standard Deviation 48.8 fL (35.1-46.3); Red Blood Cell Count 5.11 M/mm3 (4.30-5.90); White Blood Cell Count 8.88 K/mm3 (4.00-11.30)
[2021-03-30 04:21] LABS: Albumin, Blood 3.7 g/dL (3.4-5.0); Albumin/Globulin Ratio 1.2 (0.8-1.8); Bilirubin, Total 1.1 mg/dL (0.1-1.0); Bun/Creatinine Ratio 38.4 (12.0-20.0); Calcium, Blood 8.7 mg/dL (8.5-10.1); Creatinine, Blood 1.46 mg/dL (0.60-1.20); Potassium, Blood 4.6 mmol/L (3.5-5.5); Total Protein, Blood 6.7 g/dL (6.4-8.2)
--- NOTE | 2021-03-30 06:19 | NUR ---
SHIFT SUMMARY PATIENT IS ALERT AND ORIENTED X4. IRRITABLE THROUGHOUT THE NIGHT. SBA WHEN UP. PATIENT REQUESTING FOOD AND DRINK HIGH IN SUGAR AND NOT IN HIS DIET, TRIED OFFERING FOOD IN HIS DIET WHICH HE JUST THROWS AWAY, EXTENSIVE PATIENT TEACHING PROVIDED ABOUT HIS DIET AND HIS BLOOD GLUCOSE LEVELS WHICH REMAIN IN THE UPPER 300s. AFTER PATIENT BEING UNRECEPTIVE OF TEACHING OFFERED TO GET PATIENT THE FOOD HE WAS ASKING FOR AND THE PATIENT THEN DECLINES. PATIENT REQUESTED WE CHECK HIS BLOOD GLUCOSE SO HE COULD GET INSULIN AND EAT OR DRINK WHATEVER HE WANTED. NELLY CAKE FROSTER, CALLED AND TALKED TO HOSPITALIST AND INSULIN COVERAGE SCALE CHANGED TO HIGH. PATIENT UNABLE TO SLEEP THROUGH THE NIGHT AND SLEEP STUDY UNSUCCESFUL. 02 SATS >92% ON RA MOST THE NIGHT, PATIENT NOW STARTING TO SLEEP AND IS ON 2L NC. A.FIB AVERAGING 120s AND INCREASING TO 170s WITH ACTIVITY AT BEGINNING OF SHIFT, CALLED HOSPITALIST AND GAVE ADDITIONAL DOSE OF METOPROLOL AND INCREASED DOSE BID. PT A.FIB 80s-90s REST OF NIGHT. CALL LIGHT IN REACH.
--- NOTE | 2021-03-30 07:30 | NUR ---
ASSUMED CARE: PT SITTING IN CHAIR BY THE ROSALVA SUGGS ON TELE, HR 1TEENS TO 130S. STATES FRUSTRATION WITH DIET RESTRICTIONS. INFORMED HIM THAT NIGHT STATES THAT WE SHOULD LET HIM EAT WHAT HE NORMALLY WOULD AND COVER FOR THAT. PT AGREEABLE TO THIS PLAN. NO FURTHER NEEDS OR CONCERNS AT THIS TIME.
[2021-03-30] MEDS ORDERED: INSULIN LI100 UNIT/8 SC (14:42)
--- NOTE | 2021-03-30 15:38 | NUR ---
DR CARTER CAME TO SEE PT AND AND GAVE DISCHARGE INSTRUCTIONS. THIS RN GAVE DISCHARGE INSTRUCTIONS WELL AND EDUCATED PT ABOUT SIMPLE VS COMPLEX CARBS AND SICK DAY MANAGEMENT WELL WHAT TO DO IF GLUCOSE METER CONSISTENTLY READS HIGH. PT DOES NOT SEEM ENTIRELY RECEPTIVE, ARGUED ABOUT FOOD CHOICES. INSTRUCTED PT TO FOLLOW INSULIN ORDERS AND KEEP A LOG TO SHOW PCP AT NEXT APPOINTMENT. INSTRUCTED PT TO CALL [facility] IF NO APPOINTMENT SET BY THURSDAY. ESCORTED OUT VIA WHEEL CHAIR BY HOSPITAL STAFF
== END 2021-03-30 15:30 | disposition home or self-care (01) | DRG 638 ==
LOC: ER 17:43 → ICUW 17:44
PROVIDERS: Family Medicine; Physician Assistant; ADMIT Internal Medicine
DX: E11.00 Type 2 diabetes mellitus with hyperosmolarity without nonketotic hyperglycemic-hyperosmolar coma (NKHHC) (principal); N17.9 Acute kidney failure, unspecified; Z68.41 Body mass index [BMI] 40.0-44.9, adult; E86.0 Dehydration; E87.5 Hyperkalemia; I48.91 Unspecified atrial fibrillation; E66.01 Morbid (severe) obesity due to excess calories; K21.9 Gastro-esophageal reflux disease without esophagitis; M10.9 Gout, unspecified; G25.81 Restless legs syndrome; G47.33 Obstructive sleep apnea (adult) (pediatric); I10 Essential (primary) hypertension; N40.0 Benign prostatic hyperplasia without lower urinary tract symptoms; Z79.84 Long term (current) use of oral hypoglycemic drugs; Z79.899 Other long term (current) drug therapy; Z87.891 Personal history of nicotine dependence; Z88.0 Allergy status to penicillin; Z98.890 Other specified postprocedural states; Z91.19 Patient's noncompliance with other medical treatment and regimen
CPT/HCPCS: 36415; 80047; 80048; 80053; 81003; 82803; 82947; 83735; 83880; 83930; 84100; 85014; 85025; 93005; 93010; 94640; 96365; 96375; 99285-25; A9270; C1751; G0378; J0610; J1815; J2405; J7030; J7040; J7120

== ENCOUNTER → 2021-03-28 | Outpatient (CLI) | payer OTHER ==
[2021-03-28 16:54] LABS: BASOPHILS ABSOLUTE AUTO 0.06 K/mm3 (0.00-0.23); BASOPHILS PERCENT AUTO 0 % (0-2); EOSINOPHILS ABSOLUTE AUTO 0.03 K/mm3 (0.00-0.68); EOSINOPHILS PERCENT AUTO 0 % (0-6); Hematocrit 54.7 % (37.0-53.0); Hemoglobin 17.6 g/dL (13.5-17.5); IMMATURE GRAN ABSOLUTE AUTO 0.08 K/mm3 (0.00-0.10); IMMATURE GRAN PERCENT AUTO 1 % (0-1); LYMPHOCYTES ABSOLUTE AUTO 1.07 K/mm3 (0.84-5.20); LYMPHOCYTES PERCENT AUTO 8 % (21-46); MONOCYTES ABSOLUTE AUTO 1.02 K/mm3 (0.16-1.47); MONOCYTES PERCENT AUTO 7 % (4-13); Mean Corpuscular HGB 31.6 pg (26.0-34.0); Mean Corpuscular HGB Conc 32.2 g/dL (31.5-36.5); Mean Platelet Volume 11.4 fL (9.1-12.4); NEUTROPHILS ABSOLUTE AUTO 11.47 K/mm3 (1.96-9.15); NEUTROPHILS PERCENT AUTO 84 % (41-73); Platelet Count 288 K/mm3 (150-400); RDW Standard Deviation 50.7 fL (35.1-46.3); Red Blood Cell Count 5.57 M/mm3 (4.30-5.90); White Blood Cell Count 13.73 K/mm3 (4.00-11.30)
[2021-03-28 16:55] LABS: Mean Corpuscular Volume 98 fL (80-100)
[2021-03-28 16:57] LABS: Alanine Aminotransfer (ALT/SGP 47 U/L (12-78); Albumin, Blood 4.2 g/dL (3.4-5.0); Albumin/Globulin Ratio 1.1 (0.8-1.8); Alk Phos 159 U/L (40-126); Anion Gap 11 mmol/L (6-16); Aspartate Aminotrans (AST/SGOT 20 U/L (12-37); Blood Urea Nitrogen 103 mg/dL (8-24); CO2, Blood 25 mmol/L (21-32); Calcium, Blood 9.6 mg/dL (8.5-10.1); Chloride, Blood 85 mmol/L (98-108); Creatinine, Blood 3.55 mg/dL (0.60-1.20); Globulin, Blood 3.7 g/dL (2.2-4.0); Glomerular Filtration Rate 17 (60-); Sodium, Blood 121 mmol/L (136-145); Total Protein, Blood 7.9 g/dL (6.4-8.2)
[2021-03-28 17:04] LABS: Potassium, Blood 6.6 mmol/L (3.5-5.5)
[2021-03-28 17:06] LABS: Glucose, Blood >750 mg/dL (70-99)
== END | disposition home or self-care (01) ==
LOC: LAB SHORT 16:44 → LAB 16:44
PROVIDERS: Chiropractor
DX: R73.9 Hyperglycemia, unspecified (principal)
CPT/HCPCS: 80053; 85025

== ENCOUNTER → 2021-07-25 | Outpatient (CLI) | payer OTHER ==
[~2021-07-25] MED LIST changes: +ALBU2.5V5 INH; +ALBU90OI INH; +AMLODIPINE BESYL5 MG PO; +COLCHICINE0.6 MG PO; +FARXIGA10 MG PO; +FLUT1DIS5 INH; +FLUTICASONE-SA1 EAC9 INH; +INSULIN LI100 UNIT/8 SC; +LOSARTAN POTASS25 M2 PO; +MAGNESIUM OXID400 M1 PO; +METOPROLOL TAR PO; +OMEP20ER PO; +ONDA4 PO; +Potassium Chlo20 ME1 PO; +ROPINIROLE HCL3 M3 PO; +SILD50TA PO; +SPIRONOLACTONE25 MG PO; +TAMSULOSIN HCL0.4 M1 PO; +XARELTO20 M1 PO
== END | disposition home or self-care (01) ==
LOC: LAB SHORT 17:30
DX: R30.9 Painful micturition, unspecified (principal)
CPT/HCPCS: 87077; 87086; 87186

== ENCOUNTER 2021-10-03 06:07 | Day surgery (SDC) | payer OTHER ==
[~2021-10-03] VITALS: Ht 180.3 cm; Wt 124.1 kg
[~2021-10-03 06:07] MED LIST changes: +FURO20 PO; +HUMALOG100 UNIT/1 SC; +KLOR-CON 1010 ME5 PO; +LOSA25 PO; +SPIR25 PO; +WEGOVY0.25 MG/0. SC
--- NOTE | 2021-10-03 11:26 | NUR ---
recieved patient from dimitrios rn. no change in patient status.
--- NOTE | 2021-10-03 11:47 | NUR ---
PATIENT DISCHARGED WITH ALL BELONGINGS AND DISCHARGE INSTRUCTIONS AT THIS TIME.
== END 2021-10-03 23:34 | disposition home or self-care (01) ==
LOC: ORSCMMR 06:07 → ORD 07:30 → ORSCMMR 07:30
PROVIDERS: Surgery
PROC: 0WUF0JZ Supplement Abdominal Wall with Synthetic Substitute, Open Approach (ICD-10-PCS; principal; 2021-10-03 07:30)
DX: K42.0 Umbilical hernia with obstruction, without gangrene (principal); I10 Essential (primary) hypertension; G47.33 Obstructive sleep apnea (adult) (pediatric); J44.9 Chronic obstructive pulmonary disease, unspecified; Z87.891 Personal history of nicotine dependence; E11.9 Type 2 diabetes mellitus without complications; E03.9 Hypothyroidism, unspecified; E66.01 Morbid (severe) obesity due to excess calories; Z68.38 Body mass index [BMI] 38.0-38.9, adult; I48.91 Unspecified atrial fibrillation; Z79.01 Long term (current) use of anticoagulants; Z79.4 Long term (current) use of insulin; Z79.899 Other long term (current) drug therapy
CPT/HCPCS: 82947; 88304; C1781; J0690; J1100; J2250; J2370; J2405; J2704; J3010; J7120

== ENCOUNTER → 2021-11-01 | Outpatient (CLI) | payer OTHER ==
[2021-11-01 11:26] LABS: Source, Urine Clean Catch
[2021-11-01 12:10] LABS: Bacteria Many /hpf; Squamous Epithelial Cells Few /hpf (Few)
== END ==
LOC: LAB 11:19 → LAB SHORT 11:19
PROVIDERS: Physician Assistant
DX: R31.9 Hematuria, unspecified (principal)
CPT/HCPCS: 81015; 87077; 87086; 87186

== ENCOUNTER 2024-02-29 12:00 | Day surgery (SDC) | payer OTHER ==
[~2024-02-29] VITALS: Ht 180.3 cm; Wt 118.0 kg
[2024-02-29] VITALS (16 sets, daily range): BP systolic 110–169; BP diastolic 58–98
[~2024-02-29 12:00] MED LIST changes: +OZEMPIC1 MG/0.72 SC; +Ropinirole HCl0.5 MG PO
[2024-02-29] MEDS ORDERED: OxyCODONE HCL 10 MG TABCR PO SCH (12:55)
[2024-02-29] MEDS ORDERED: Chlorhexidine Mouth Care 15 ML UDC MT SCH (12:55)
[2024-02-29] MEDS ORDERED: Lactated Ringer's 1,000 ML IV SCH ×2 (12:55→14:55)
[2024-02-29] MEDS ORDERED: CeFAZolin Sodium 2,000 MG in NS 100 ML IV SCH (12:55)
[2024-02-29] MEDS ORDERED: Ropivacaine 0.5% HCl/Pf 123.125 MG,EPINEPHrine HCL 0.25 MG,Ketorolac Tromethamine 15 MG... INFIL SCH (12:55)
[2024-02-29] MEDS ORDERED: Acetaminophen 500 MG Tab PO SCH ×2 (12:55→16:00)
[2024-02-29] MEDS ORDERED: Midazolam HCl 1MG / ML 2ML Vial ONE (14:06)
[2024-02-29] MEDS ORDERED: FentaNYL Citrate 50 MCG/ML 2 ML Injection ONE (14:20)
[2024-02-29] MEDS ORDERED: propofoL 20 ML IV ONE (14:21)
[2024-02-29] MEDS ORDERED: ePHEDrine Sulfate 50 MG/ML 1ML Injection ONE (14:40)
[2024-02-29] MEDS ORDERED: propofoL 40 ML IV ONE ×2 (14:41→15:42)
[2024-02-29] MEDS ORDERED: Metoclopramide HCl 5MG / ML 2ML Vial IV PRN (14:55)
[2024-02-29] MEDS ORDERED: Magnesium Hydroxide Conc 10 ML UDC PO PRN (15:00)
[2024-02-29] MEDS ORDERED: Bisacodyl 10 MG Supp PR PRN (15:00)
[2024-02-29] MEDS ORDERED: Promethazine HCl 25 MG Tab PO PRN (15:00)
[2024-02-29] MEDS ORDERED: HYDROmorphone HCl/Pf 1MG SYR IV PRN (15:00)
[2024-02-29] MEDS ORDERED: DiphenhydrAMINE HCL 25 MG Cap PO PRN (15:00)
[2024-02-29] MEDS ORDERED: Ondansetron HCl 2 MG / ML 2ML Vial IV PRN (15:05)
[2024-02-29] MEDS ORDERED: OxyCODONE HCL 5 MG TAB PO PRN ×2 (15:05)
[2024-02-29] MEDS ORDERED: Insulin Regular 100 UNIT/ML 10ML Vial SC SCH (16:30)
[2024-02-29] MEDS ORDERED: Mometasone/Formoterol MDI 200/5 mcg 13 GM INH SCH (17:10)
[2024-02-29] MEDS ORDERED: Colchicine 0.6 MG TAB PO PRN (17:10)
[2024-02-29] MEDS ORDERED: Albuterol HFA200 ACT/6.7 GM INH INH PRN (17:10)
[2024-02-29] MEDS ORDERED: Ketorolac Tromethamine 15mg Vial IV SCH (18:00)
--- NOTE | 2024-02-29 18:24 | NUR ---
SHIFT SUMMARY PT ARRIVED FROM PACU 1750 APPROX, S/P L TKA, AQUACEL CDI, SPINAL ANES, TEDS/SCDS/POLAR DUNCAN ON, BEDREST, CHANO PO, DENIES PAIN, 18G IVF/ABX PER EMAR, AWAITING POST OP VOID. WILL REPORT TO ONCOMING NOC RN.
[2024-02-29] MEDS ORDERED: Tamsulosin HCl 0.4 MG Cap PO SCH (21:00)
[2024-02-29] MEDS ORDERED: rOPINIRole HCl 1 MG Tab PO SCH (21:00)
[2024-02-29] MEDS ORDERED: Metoprolol Tartrate 50 MG Tab PO SCH (21:00)
[2024-02-29] MEDS ORDERED: Magnesium Oxide 400 MG Tab PO SCH (21:00)
[2024-02-29] MEDS ORDERED: Docusate Sodium 100 MG Cap PO SCH (21:00)
[2024-03-01 01:18] VITALS: BP 133/73
[2024-03-01 02:03] VITALS: BP 149/77
[2024-03-01] MEDS ORDERED: Rivaroxaban 10 MG Tab PO SCH (03:30)
--- NOTE | 2024-03-01 04:21 | NUR ---
SHIFT SUMMARY PT SLEPT WELL T/O NIGHT. L KNEE AQUACEL DRESSING REMAINS UNCHANGED WITH POLAR PACK IN PLACE. UP WITH 1 ASSIST FWW/GB. VOIDING. CHANO PO. 1 ROXICODONE/TYLENOL/TORADOL FOR PAIN MANAGEMENT. VSS. USES CALL LIGHT APPROPRIATELY.
[2024-03-01 05:40] LABS: BASOPHILS ABSOLUTE AUTO 0.01 K/mm3 (0.00-0.23); BASOPHILS PERCENT AUTO 0 % (0-2); EOSINOPHILS PERCENT AUTO 0 % (0-6); Hematocrit 43.4 % (37.0-53.0); Hemoglobin 14.6 g/dL (13.5-17.5); IMMATURE GRAN ABSOLUTE AUTO 0.07 K/mm3 (0.00-0.10); IMMATURE GRAN PERCENT AUTO 1 % (0-1); LYMPHOCYTES ABSOLUTE AUTO 0.65 K/mm3 (0.84-5.20); LYMPHOCYTES PERCENT AUTO 5 % (21-46); MONOCYTES PERCENT AUTO 3 % (4-13); Mean Corpuscular HGB 30.2 pg (26.0-34.0); Mean Corpuscular HGB Conc 33.6 g/dL (31.5-36.5); Mean Corpuscular Volume 90 fL (80-100); Mean Platelet Volume 9.6 fL (9.1-12.4); NEUTROPHILS ABSOLUTE AUTO 12.26 K/mm3 (1.96-9.15); NEUTROPHILS PERCENT AUTO 92 % (41-73); Platelet Count 203 K/mm3 (150-400); RDW Coefficient Variation 14.4 % (11.7-14.2); RDW Standard Deviation 47.4 fL (35.1-46.3); Red Blood Cell Count 4.84 M/mm3 (4.30-5.90); White Blood Cell Count 13.39 K/mm3 (4.00-11.30)
[2024-03-01] MEDS ORDERED: Levothyroxine Sodium 0.1 MG Tab PO SCH (06:00)
[2024-03-01] MEDS ORDERED: Omeprazole 20 MG CapCR PO SCH (06:00)
[2024-03-01 06:14] LABS: Bun/Creatinine Ratio 23.5 (12.0-20.0); Creatinine, Blood 0.94 mg/dL (0.60-1.20); Magnesium, Blood 1.9 mg/dL (1.6-2.4); Potassium, Blood 4.5 mmol/L (3.5-5.5)
[2024-03-01 07:17] VITALS: BP 140/97
[2024-03-01] MEDS ORDERED: ACET500 PO (08:40)
[2024-03-01] MEDS ORDERED: OXAYDO5 M3 PO (08:41)
[2024-03-01] MEDS ORDERED: Finasteride 5 MG Tab PO SCH (09:00)
[2024-03-01] MEDS ORDERED: Losartan Potassium 25 MG Tab PO SCH (09:00)
[2024-03-01] MEDS ORDERED: Allopurinol 100 MG Tab PO SCH (09:00)
--- NOTE | 2024-03-01 11:11 | NUR ---
BLEEDING AFTER PATIENT WORKED WITH THERAPY AT APPROX 1000, SANGUINOUS DRAINAGE COMING OUT OF WeYAPEL. CHANGED DRESSING TO ABD PAD AND AN TIFFANY WRAP FOR PRESSURE. DISCUSSED WITH UX ARCHITECT. EDUCATED PATIENT ON IMPORTANCE OF KEEPING LEG ELEVATED AND THAT WE WOULD REASSESS BLEEDING PRIOR TO DISCHARGE THIS AFTERNOON. PT AGREEABLE AT THAT TIME. PT REQUESTING DISCHARGE PAPERWORK AT APPROX 1100, DRESSING CHANGED AND ABD PAD SATURATED. CHANGED AND REWRAPPED AT THIS TIME. PT STATED HE STILL WANTED TO DISCHARGE. EDUCATION PROVIDED ON IMPORTANCE OF MANAGING BLEEDING PRIOR TO DISCHARGE. SPOUSE AT BEDSIDE AGREEABLE AND DID NOT WANT TO DISCHARGE AT THIS TIME. PT CURRENTLY SITTING IN RECLINER. JOHNIE SONG ON. Swarm64 CDI CURRENTLY.
--- NOTE | 2024-03-01 12:23 | NUR ---
DR GUERRA NOTIFIED OF BLEEDING, ORDERS TO GIVE MORE TXA AND CONTINUE TO OBSERVE FOR MORE BLEEDING. PLAN IS TO KEEP PATIENT UNTIL BLEEDING UNDER CONTROL. PT AND SPOUSE UPDATED ON PLAN.
[2024-03-01] MEDS ORDERED: NS 250 ML IV PRN (12:35)
--- NOTE | 2024-03-01 14:59 | NUR ---
dressing to l knee changed at this time. moderate amount of dried sanguinous drainage on abd pad. dark in color, no active drainage from incision once dressing removed. cleaned with hydrogen peroxide. new abd pad and herson wrap applied. txa done infusing per emar. plan to reassess bleeding next time patient stands to void.
--- NOTE | 2024-03-01 16:08 | NUR ---
CHECKED DRESSING AT THIS TIME. ABD PAD HAS SMALL PEN SIZED RED SPOT. OTHERWISE CDI. TIFFANY WRAP REMAINS IN PLACE
[2024-03-01 16:35] VITALS: BP 142/92
--- NOTE | 2024-03-01 17:05 | NUR ---
DISCHARGE POD [address] GUERRA, NOTIFIED HER OF DECREASED BLEEDING AND BRUISING NOTICED DURING ASSESSMENT. PT OKAY TO DISCHARGE WITH ABD PADS AND TIFFANY WRAP. AND ORDERS TO HOLD XARELTO FOR 1 MORE DAY. WENT OVER DRESSING CHANGES WITH PATIENT AND SPOUSE. BOTH VERBALIZED UNDERSTANDING. EXTRA SUPPLIES SENT WITH PATIENT. EDUCATED PATIENT ON MONITORING INCISION CLOSELY AND WASHING HANDS WITH ALL DRESSING CHANGES. PT VERBALIZED UNDERSTANDING. PT AMBULATING WELL WITH THERAPY. NEEDS REMINDERS TO USE WALKER FOR SMALL WALKS. CONTINUED TO BE IMPULSIVE AT TIMES BUT WOULD REDIRECT WELL WHEN ASKED. PAIN WELL CONTROLLED PER EMAR. PT ESCORTED OUT VIA WHEELCHAIR, ALL BELONGINGS WITH PATIENT.
== END 2024-03-01 17:08 | disposition home or self-care (01) ==
LOC: ORSCMMR 12:00 → ORD 16:15 → SURS 17:36 → ORD 19:00 → ORSCMMR 03-01 17:08
PROVIDERS: Orthopaedic Surgery
PROC: 0SRD0JA Replacement of Left Knee Joint with Synthetic Substitute, Uncemented, Open Approach (ICD-10-PCS; principal; 2024-02-29 16:15)
DX: M17.12 Unilateral primary osteoarthritis, left knee (principal); J44.9 Chronic obstructive pulmonary disease, unspecified; I10 Essential (primary) hypertension; E78.5 Hyperlipidemia, unspecified; G47.33 Obstructive sleep apnea (adult) (pediatric); E66.9 Obesity, unspecified; Z68.35 Body mass index [BMI] 35.0-35.9, adult; E03.9 Hypothyroidism, unspecified; E11.9 Type 2 diabetes mellitus without complications; Z87.891 Personal history of nicotine dependence; Z79.899 Other long term (current) drug therapy; Z79.01 Long term (current) use of anticoagulants
CPT/HCPCS: 27447; 0055T; 36415; 73560-LT; 80048; 82947; 83735; 85025; 94760; 97116; 97162; 97530; A9270; C1713; C1776; J0171; J0690; J0735; J1885; J2250; J2704; J2795; J3010; J7120

== ENCOUNTER → 2024-10-17 | Outpatient (CLI) | payer OTHER ==
[~2024-10-17] MED LIST changes: +ACET500 PO; +OXAYDO5 M3 PO
== END | disposition home or self-care (01) ==
LOC: LAB 13:32 → LAB SHORT 13:32
DX: E11.69 Type 2 diabetes mellitus with other specified complication (principal); E11.22 Type 2 diabetes mellitus with diabetic chronic kidney disease; E11.42 Type 2 diabetes mellitus with diabetic polyneuropathy
CPT/HCPCS: 36415; 83036

== ENCOUNTER → 2024-12-09 | Outpatient (CLI) | payer OTHER ==
[2024-12-09 11:14] LABS: Source, Urine Clean Catch
[2024-12-09 12:21] LABS: Bacteria Many /hpf; Red Blood Cells, Urine 0-2 /hpf (0-2); Squamous Epithelial Cells Rare /hpf (Few); White Blood Cells, Urine 50-100 /hpf (0-5)
== END ==
LOC: LAB SHORT 11:08 → LAB 11:08
PROVIDERS: Family Medicine
DX: R30.0 Dysuria (principal)
CPT/HCPCS: 81015; 87077; 87086; 87102; 87186